=== PATIENT | male | born 1985 | race Caucasian/White ===

== ENCOUNTER 2020-08-03 14:14 | Emergency (ER) | payer MEDICAID ==
[~2020-08-03] VITALS: Ht 185.4 cm; Wt 79.4 kg
[2020-08-03 14:15] VITALS: BP_SYST 115
[2020-08-03] MEDS ORDERED: cefTRIAXone 2 GM VIAL IM ONE (15:00)
[2020-08-03] MEDS ORDERED: AMPICILLIN SODIUM 2 GM VIAL IM ONE (15:00)
[2020-08-03] MEDS ORDERED: MORPHINE 4 MG INJ. 4 MG/ML VIAL IVP ONE (15:00)
[2020-08-03] MEDS ORDERED: VANCOMYCIN HCL 1,000 MG in NS 250 ML IV ONE (15:00)
[2020-08-03] MEDS ORDERED: cefTRIAXone 2 GM VIAL ONE (15:27)
[2020-08-03] MEDS ORDERED: AMPICILLIN SODIUM 2 GM VIAL IV ONE (15:30)
[2020-08-03] MEDS ORDERED: AMPICILLIN SODIUM 2 GM in NS 100 ML IV ONE (15:30)
[2020-08-03 15:35] LABS: BASOPHILS % (AUTO) 0.5 % (0.0-2.0); EOSINOPHILS % (AUTO) 0.4 % (0.0-4.0); HEMATOCRIT 33.2 % (36-54); HEMOGLOBIN 11.6 g/dL (14.0-18.0); LYMPHOCYTES # (AUTO) 1.1 K/uL (1.0-5.5); LYMPHOCYTES % (AUTO) 24.2 % (20.5-51.5); MEAN CORPUSCULAR HEMOGLOBIN 30 pg (27-31); MEAN CORPUSCULAR HGB CONC 35 % (32-36); MEAN CORPUSCULAR VOLUME 87 fL (79.0-98.0); MONOCYTES # (AUTO) 0.4 K/uL (0.0-1.0); MONOCYTES % (AUTO) 8.7 % (1.7-9.3); NEUTROPHILS # (AUTO) 3.1 K/uL (1.8-7.7); NEUTROPHILS % (AUTO) 66.2 % (40.0-70.0); PLATELET COUNT (AUTO) 239 K/uL (130-430); WHITE BLOOD COUNT (AUTO) 4.7 K/uL (4.8-10.8)
[2020-08-03 15:55] LABS: CALCIUM 8.4 mg/dL (8.4-11.0); CREATININE 0.76 mg/dL (0.55-1.30); POTASSIUM 3.8 mmol/L (3.5-5.1)
[2020-08-03 16:01] LABS: ALBUMIN 2.9 g/dL (3.4-4.8); TOTAL BILIRUBIN 0.5 mg/dL (0.0-1.0)
[2020-08-03] MEDS ORDERED: HYDR-3919 PO (16:46)
[2020-08-03] MEDS ORDERED: IBUP-1971 PO (16:46)
[2020-08-03 17:50] VITALS: BP_SYST 115
== END 2020-08-03 17:50 | disposition home or self-care (01) ==
LOC: SED 14:14
DX: R51.9 Headache, unspecified (principal); R53.1 Weakness; Z20.822 Contact with and (suspected) exposure to COVID-19; Z79.899 Other long term (current) drug therapy
CPT/HCPCS: 36415; 70450; 76376; 80053; 83605; 85025; 86480; 86592; 86780; 87040; 87426; 93005; 96374; 99285; J0290; J0696; J2270; J3370; J7050; J7060